=== PATIENT | female | born 1990 | race Caucasian/White ===

== ENCOUNTER → 2022-07-31 09:37 | Outpatient (BNVA) | payer BC, MEDICAID, SELFPAY | PROVIDERS: Visit Provider Podiatrist Foot & Ankle Surgery | DX: L84 Corns and callosities (principal); M20.41 Other hammer toe(s) (acquired), right foot | CPT/HCPCS: 73630 ==

== ENCOUNTER → 2023-06-21 11:28 | Outpatient (BNVA) | payer MEDICAID, SELFPAY | PROVIDERS: PCP Nurse Practitioner Family; Referring Provider Nurse Practitioner Family; Visit Provider Nurse Practitioner Family | DX: M54.2 Cervicalgia (principal) | CPT/HCPCS: 72040 ==

== ENCOUNTER 2023-12-19 06:00 | Outpatient (RCR) | payer MEDICAID, SELFPAY | END 2024-01-06 23:59 | disposition home or self-care (01) | LOC: MPT 06:00 | PROVIDERS: Visit Provider Nurse Practitioner Family | DX: M54.2 Cervicalgia (principal); G89.29 Other chronic pain | CPT/HCPCS: 97110; 97140; 97161; 97530 ==

== ENCOUNTER 2024-01-07 06:00 | Outpatient (RCR) | payer MEDICAID, SELFPAY | END 2024-02-05 23:59 | disposition home or self-care (01) | LOC: MPT 06:00 | PROVIDERS: Visit Provider Nurse Practitioner Family | DX: M54.2 Cervicalgia (principal); G89.29 Other chronic pain | CPT/HCPCS: 97110; 97140; 97530; G0283 ==

== ENCOUNTER 2024-02-06 06:00 | Outpatient (RCR) | payer MEDICAID, SELFPAY | END 2024-03-07 23:59 | disposition home or self-care (01) | LOC: MPT 06:00 | PROVIDERS: Visit Provider Nurse Practitioner Family | DX: M54.2 Cervicalgia (principal); G89.29 Other chronic pain | CPT/HCPCS: 97110; 97140; 97530; G0283 ==

== ENCOUNTER 2024-03-08 06:00 | Outpatient (RCR) | payer MEDICAID, SELFPAY | END 2024-04-06 23:59 | disposition home or self-care (01) | LOC: MPT 06:00 | PROVIDERS: Visit Provider Nurse Practitioner Family | DX: M54.2 Cervicalgia (principal); G89.29 Other chronic pain | CPT/HCPCS: 97110; 97112; 97140; 97530 ==

== ENCOUNTER 2024-04-07 06:00 | Outpatient (RCR) | payer MEDICAID, SELFPAY | END 2024-05-07 23:59 | disposition home or self-care (01) | LOC: MPT 06:00 | PROVIDERS: Visit Provider Nurse Practitioner Family | DX: M54.2 Cervicalgia (principal); G89.29 Other chronic pain | CPT/HCPCS: 97110; 97140; 97530 ==

== ENCOUNTER 2024-05-08 06:00 | Outpatient (RCR) | payer MEDICAID, SELFPAY | END 2024-06-07 23:59 | disposition home or self-care (01) | LOC: MPT 06:00 | PROVIDERS: Visit Provider Nurse Practitioner Family | DX: M54.2 Cervicalgia (principal); G89.29 Other chronic pain | CPT/HCPCS: 97110; 97140; 97530 ==

== ENCOUNTER 2024-06-08 06:00 | Outpatient (RCR) | payer MEDICAID, SELFPAY | END 2024-07-07 23:59 | disposition home or self-care (01) | LOC: MPT 06:00 | PROVIDERS: Visit Provider Nurse Practitioner Family | DX: M54.2 Cervicalgia (principal); G89.29 Other chronic pain | CPT/HCPCS: 97110; 97140; G0283 ==